=== PATIENT | female | born 1930 | race Asian ===

== ENCOUNTER 2017-02-05 17:01 | Inpatient (IN) | payer MEDICARE, MEDICAID ==
--- NOTE | 2017-02-05 17:15 | ED Physician Chart ---
ED Chief Complaint/HPI - Patient Information Date Seen:: 02/05/17 Time Seen:: 17:00 Chief Complaint:: altered level of consciousness History of Present Illness:: Patient said decreased level of consciousness for last 3 days. She's also had a fever and a productive cough. 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; right sided facial twitch) Family History: None Social History: Non Smoker, No Alcohol, Care Facility Surgical History: other (bilateral above-knee amputations) Psychiatricy History: None Medication: Reviewed Family Medical History - Family Member Mother Ethnicity: Non- Living Status: Still Living ED Physical Exam - Physical Examination Other Gen/Cons comments:: Chronically ill-appearing Head: Atraumatic Eyes: Lids, conjuctiva normal Skin: Nl inspection, No rash ENMT: External ears, nose nl Other ENMT comments:: Edentulous Neck: No nuchal rigidity Respiratory: Nl effort/Exclusion, Clear to Auscultation, No Wheeze/Rhonchi/Rales Cardio Vascular: RRR GI: No tenderness/rebounding/guarding, No organomegaly, No hernia, Normal BS's : No CVA tenderness Other Extremities comments:: Bilateral above-knee amputations Neuro/Psych: No focal deficits ED Labs/Radiology/EKG Results - Lab Results Results: Laboratory Results - last 24 hr 02/05/17 02/05/17 02/05/17 17:20 17:20 17:45 WBC 9.8 RBC 4.46 Hgb 13.2 Hct 40.2 L MCV 90.2 MCH 29.7 MCHC Differential 32.9 RDW 14.5 Plt Count 232 MPV 7.2 Neutrophils % 84.9 H Lymphocytes % 10.8 L Monocytes % 2.0 Eosinophils % 0.1 Basophils % 2.2 H Sodium 139 Potassium 3.8 Chloride 109 H Carbon Dioxide 26.8 Anion Gap 7.0 BUN 28 H Creatinine 1.0 Est GFR ( Amer) TNP Est GFR (Non-Af Amer) TNP BUN/Creatinine Ratio 28.0 Glucose 160 H Calcium 9.2 Urine Color YELLOW Urine Clarity CLOUDY H Urine pH 7.0 Ur Specific [place] 1.010 Urine Protein TRACE Urine Glucose (UA) NEGATIVE Urine Ketones NEGATIVE Urine Blood LARGE H Urine Nitrate NEGATIVE Urine Bilirubin NEGATIVE Urine Urobilinogen 0.2 Ur Leukocyte Esterase LARGE H ED Septic Shock - . Is Septic Shock (SBP<90, OR Lactate>4 mmol\L) present?: No ED Reassessment (Disposition) - Reassessment Reassessment Condition:: Unchanged - Diagnosis Diagnosis:: Acute febrile illness; pyelonephritis; status post bilateral above-knee amputations; vascular disease - Patient Disposition Admitted to:: Med/Surg Spoke to:: Ronal Howell Admitting Medical Physician:: Ronal Howell Condition at Disposition:: Stable, Unchanged
[2017-02-05 17:31] LABS: % BASOPHILS 2.2 % (0.0-2.0); % EOSINOPHILS 0.1 % (0.0-5.0); % LYMPHOCYTES 10.8 % (20.0-50.0); % NEUTROPHILS 84.9 % (40.0-80.0); HEMATOCRIT 40.2 % (41.0-60); HEMOGLOBIN 13.2 gm/dL (12-16); MEAN CELL VOLUME 90.2 fl (81-100); MEAN CORPUSCULAR HEMOGLOBIN 29.7 pg (27.0-31.0); MEAN CORPUSCULAR HGB CONC 32.9 pg (28.0-36.0); MEAN PLATELET VOLUME 7.2 fl; NEUTROPHILE ABSOLUTE 8.3 Th/cmm (1.8-8.0); PLATELET COUNT 232 Th/cmm (150-400); RED BLOOD COUNT 4.46 Mil/cmm (3.80-5.20); RED CELL DISTRIBUTION WIDTH 14.5 % (11.5-20.0); WHITE BLOOD COUNT 9.8 Th/cmm (4.8-10.8)
[2017-02-05 17:48] LABS: BUN - UREA NITROGEN 28 mg/dL (7-25); CALCIUM SERUM 9.2 mg/dL (8.6-10.3); CARBON DIOXIDE 26.8 mEq/L (21.0-31.0); CHLORIDE 109 mEq/L (98-107); GLUCOSE 160 mg/dL (70-105); POTASSIUM SERUM 3.8 mEq/L (3.5-5.1); SODIUM SERUM 139 mEq/L (136-145)
[2017-02-05 18:30] LABS: URINE BILIRUBIN NEGATIVE (NEGATIVE); URINE BLOOD LARGE (NEGATIVE); URINE GLUCOSE (UA) NEGATIVE (NEGATIVE); URINE KETONE NEGATIVE (NEGATIVE); URINE PROTEIN TRACE mg/dL (NEGATIVE); URINE UROBILINOGEN 0.2 E.U./dL (0.2 - 1.0)
[2017-02-05 18:51] LABS: URINE COLOR YELLOW
[2017-02-05 19:04] LABS: URINE BACTERIA FEW /hpf (NONE SEEN); URINE EPITHELIAL CELLS NONE SEEN /lpf (FEW); URINE RBC >100 /hpf (0-5); URINE WBC 50-100 /hpf (0-5)
[2017-02-05] MEDS ORDERED: Sodium Chloride 0.9% 1,000 ML IV ONE (19:05)
[2017-02-05] MEDS ORDERED: cefTRIAXone 1 GM in Sodium Chloride 0.9% 50 ML IV ONE (19:07)
[2017-02-05] MEDS: D5-0.45NS 1,000 ML IV SCH (21:06)
--- NOTE | 2017-02-06 07:05 | Diagnostic Imaging Report ---
Portable chest x-ray Time: 1740 hours History: Fever Allowing for portable technique the heart size is normal. No focal pulmonary parenchymal processes. No hilar or mediastinal abnormalities. Bony thorax remarkable for degenerative osteopenia. There is no evidence of pleural effusions. Impression: No acute abnormalities.
[2017-02-06] MEDS ORDERED: Magnesium Hydroxide (MOM) 30 mL UDC PO PRN (08:58)
[2017-02-06] MEDS ORDERED: Fleet Enema 135 mL RC PRN (08:58)
[2017-02-06] MEDS ORDERED: Polyvinyl Alcohol Ophth Soln 15 mL Bottle EACH EYE PRN (10:00)
--- NOTE | 2017-02-06 10:24 | History & Physical ---
ADMIT DATE: 02/05/2017 PATIENT IDENTIFYING DATA: An 86-year-old female. CHIEF COMPLAINT: Sent to Emergency Room for high-grade fever and increasing lethargy. HISTORY SOURCE: Talking to staff at [facility] as well as reviewing the chart. 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 Noted by nursing staff that the patient was having a high-grade fever with increasing lethargy. The patient was sent to Emergency Room where the patient was evaluated by Emergency Room MD. Workup did reveal the patient had urinary tract infection along with elevated blood sugar. The patient due to her advanced age and complicated UTI, the patient is advised to be admitted. The patient has now been admitted to Med/Surg floor. PAST MEDICAL HISTORY: Remarkable for: 1. Peripheral vascular disease. 2. Bilateral above-knee amputation. 3. Gastritis. 4. Rheumatoid arthritis. 5. Hyperlipidemia. 6. Glaucoma. 7. DJD. 8. Dementia. MEDICATIONS AT HOME: Taking Tylenol, amlodipine, aspirin, bisacodyl, calcium with vitamin D, Artificial Tear, Colace, famotidine, Fleet enema, folic acid, magnesium hydroxide, ____, prednisone, simvastatin and Travatan eyedrops. ALLERGIES: The patient is not allergic to medication. SOCIAL HISTORY: The patient resides in a [facility]. No smoking cigarette, alcohol or drug use. FAMILY MEDICAL HISTORY: Remarkable for hypertension. REVIEW OF SYSTEMS: The patient is currently alert, awake. Denies any chest pain, shortness of breath. Does have fever, intermittent. Does have chills. Denies any headache. Denies any dysphagia. Denies any seizure. Denies any syncopal episode. The patient has a poor appetite. The patient denies any upset stomach. Denies any hematemesis, hematuria, hematochezia or melena. PHYSICAL EXAMINATION: GENERAL: The patient is an 86-year-old ill-appearing female lying in the bed without any acute distress. VITAL SIGNS: T-max is 102.4, pulse is 75, respiratory rate is 20, blood pressure 130/70. SKIN: Warm to touch. Adequate skin turgor. No petechiae. No purpura. HEENT: Normocephalic, atraumatic. Extraocular muscles are intact. 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 Tongue was pink and dry. Legal blindness also noted. NECK: Supple. No JVD. No hepatojugular reflex. No lymphadenopathy, thyromegaly or carotid bruit. HEART: Both heart sounds are regular. No S3. No S4. CHEST: Lung equal in expansion with decreased breath sounds in both bases. ABDOMEN: Soft. No guarding. No rigidity. Bowel sounds are present. No palpable mass. EXTREMITIES: Bilateral above-knee amputation noted with intact stump. NEUROLOGIC: Alert, awake and follows commands. AVAILABLE DIAGNOSTIC DATA: The patient's white count of 9.8, hemoglobin 13.2, platelet count of 232. Sodium 139, potassium 3.9, chloride 109, CO2 is 26.8, BUN is 78, creatinine is 1, glucose 160. Urine remarkable for urinary tract infection. IMPRESSION: 1. Complicated urinary tract infection. 2. High-grade fever secondary to urinary tract infection. 3. Immunocompromised. 4. Glaucoma. 5. Hypertension. 6. Peripheral vascular disease. 7. Status post bilateral above-knee amputation. 8. High risk for fall. 9. DJD. 10. Rheumatoid arthritis. PLAN: 1. Admit this patient to Med/Surg floor. 2. IV antibiotic. 3. Blood cultures. 4. Appropriate home medicine reconciliation. 5. General nursing care. 6. Nutritional support. 7. Follow lab. 8. Infectious Disease consultation. 9. Follow consult recommendation. 10. Care plan reviewed and discussed with staff. JOB# [id number]
[2017-02-06] MEDS: Multivitamin w/ Minerals Tab PO SCH (10:36)
[2017-02-06] MEDS: Calcium Carb/Vit D 500 mg/200 U Tab PO SCH ×2 (10:36→16:36)
[2017-02-06] MEDS: Aspirin 81mg Chewable Tab PO SCH (10:38)
[2017-02-06] MEDS: D5-0.45NS 1,000 ML IV SCH ×2 (10:49→23:26)
--- NOTE | 2017-02-06 11:48 | Consultation ---
Consult Note - Consult Note Service Date: 02/06/17 Referring Physician: John Mishra Consult Note: PHYSICIAN Consultation Note: Date of Admission: 02/05/17 Purpose of Consultation: Sepsis UTI. Chief Complaint: Patient FRANCK PLASCENCIA was admitted to location Medical/Surgical Unit I with PYELONEPHRITIS. History of Present Illness: 80-year-old female with a past medical history of dementia, rheumatoid arthritis , hyperlipidemia, glaucoma, DJD, bilateral [id number] amputations brought in from nursing facility for high fevers. On initial evaluation, her temperature was 102.7F and WBC count was 9800. Sepsis workup showed UTI., Urinalysis showed pyuria and bacteriuria. She was put on Rocephin and gentamicin. ID consult was called for antibiotic management. Past Medical History: dementia, rheumatoid arthritis, hyperlipidemia, glaucoma , DJD, bilateral [id number] amputations . Allergies Allergy/AdvReac Type Severity Reaction Status Date / Time No Known Allergies Allergy Verified 02/05/17 17:10 Vital Signs Temp 97.1 F 02/06/17 11:32 Pulse 99 02/06/17 11:32 Resp 16 02/06/17 11:32 BP 160/84 02/06/17 11:32 Pulse Ox 96 02/06/17 11:32 Intake & Output 02/05/17 02/06/17 02/06/17 18:59 06:59 18:59 Intake Total 100 1000 Balance 100 1000 Weight (lbs) 36.469 kg Intake: Intake, IV Amount 1000 D5-0.45NS 1,000 ml @ 75 1000 mls/hr IV .[id number] [facility] Rx #:[id number] Oral 100 Other: # Voids 2 # Bowel Movements 0 Home Medication Medication Instructions Recorded Type Acetaminophen [8 Hour] 650 mg PO Q6H PRN 02/05/17 History Acetaminophen [Tylenol] 650 mg PO Q4HR PRN 02/05/17 History Amino Acids/Protein Hydrolys 30 ml PO BID 02/05/17 History [Pro-Stat Sugar Free 887 ml] Aspirin [Aspirin Chewable] 81 mg PO DAILY 02/05/17 History Bisacodyl [Dulcolax 10 Mg Supp] 10 mg RC DAILY PRN 02/05/17 History Calcium Carbonate/Vitamin D3 1 each PO BID 02/05/17 History [Calcium 500 + Vit D Caplet] Dextran 70/Hypromellose 1.4 % OP QID 02/05/17 History [Artificial Tears] Docusate Sodium [Colace] 100 mg PO BID 02/05/17 History Famotidine [Pepcid] 20 mg PO BID 02/05/17 History Fleet Enema [Fleet Enema] 135 ml RC Q72H PRN 02/05/17 History Folic Acid [Folate*] 1 mg PO DAILY 02/05/17 History Magnesium Hydroxide [Milk of 30 ml PO DAILY PRN 02/05/17 History Magnesia] Multivitamin w/ Minerals 1 tab PO DAILY 02/05/17 History [Theragran M] Prednisone 2.5 mg PO DAILY 02/05/17 History Simvastatin [Zocor] 10 mg PO HS 02/05/17 History Travoprost [Travatan Z 2.5 ml] 0.004 % OP HS 02/05/17 History amLODIPine Besylate [Norvasc] 5 mg PO BID 02/05/17 History Current Medications Generic Name Dose Route Start Last Admin Trade Name Fre PRN Reason Stop Dose Admin Acetaminophen 650 mg 02/06/17 08:58 Tylenol PO Q6H PRN Pain Amlodipine Besylate 5 mg 02/06/17 09:00 02/06/17 10:37 Norvasc PO 04/07/17 08:59 5 mg BID CATHERINE Administration Artificial Tears 1 drop 02/06/17 10:00 Artificial Tears Ophth Soln EACH EYE 04/07/17 09:59 QID PRN DRY EYES Aspirin 81 mg 02/06/17 09:00 02/06/17 10:38 Aspirin Chewable PO 04/07/17 08:59 81 mg DAILY CATHERINE Administration Bisacodyl 10 mg 02/06/17 08:58 Dulcolax 10 Mg Supp RC 04/07/17 08:57 DAILY PRN IF MOM INEFFECTIVE FOR BM Calcium/Vitamin D 1 tab 02/06/17 09:00 02/06/17 10:36 Oscal W/Vitamin D PO 04/07/17 08:59 1 tab BID CATHERINE Administration Docusate Sodium 100 mg 02/06/17 09:00 02/06/17 10:37 Colace PO 04/07/17 08:59 100 mg BID CATHERINE Administration Famotidine 20 mg 02/06/17 09:00 02/06/17 10:37 Pepcid PO 04/07/17 08:59 20 mg BID CATHERINE Administration Folic Acid 1 mg 02/06/17 09:00 02/06/17 10:36 Folate PO 04/07/17 08:59 1 mg DAILY CATHERINE Administration Dextrose/Sodium Chloride 1,000 mls @ 75 mls/hr 02/05/17 19:45 02/06/17 10:49 D5-0.45ns IV 04/06/17 19:44 75 mls/hr .[id number] CATHERINE Administration Ceftriaxone Sodium 1 gm/ 50 mls @ 100 mls/hr 02/06/17 20:00 Dextrose IV 04/07/17 19:59 Q24H CATHERINE Gentamicin Sulfate 60 mg/ 101.5 mls @ 100 mls/hr 02/06/17 10:00 02/06/17 11: 14 Sodium Chloride IV 04/07/17 09:59 100 mls/hr Q24HR@0900 CATHERINE Administration Magnesium Hydroxide 30 ml 02/06/17 08:58 Milk Of Magnesia PO 04/07/17 08:57 DAILY PRN IF NO BM FOR TWO DAYS Miscellaneous 0.004 % 02/06/17 21:00 Travoprost [Travatan] OP 04/07/17 20:59 HS CATHERINE Miscellaneous 1 ea 02/06/17 09:15 Gentamicin Iv Per Pharmacy [facility] 04/07/17 09:14 PRN CATHERINE Prednisone 2.5 mg 02/06/17 09:00 02/06/17 10:38 Deltasone PO 04/07/17 08:59 2.5 mg DAILY CATHERINE Administration Simvastatin 10 mg 02/06/17 21:00 Zocor PO 04/07/17 20:59 HS [facility] Protocol Sodium Phosphate 135 ml 02/06/17 08:58 Fleet Enema RC 04/07/17 08:57 Q72H PRN IF DULCOLAX INEFFECTIVE FOR BM Review of Systems: A 12 point ROS was reviewed with the pertinent positive and negatives noted in the HPI. Social History Smoking Status Never smoker Family Medical History Unknown. Temperature was Physical Exam: General: Lean and thin female without any acute distress. Nontoxic. HEENT: Head: Normocephalic, atraumatic. Oral cavity: Moist, pink tongue. Eyes : No pallor. No icterus. Face: Symmetrical. Neck: Supple, no JVD, no use of X his neck muscles. Cardio: S1 and S2 within normal limits regular rhythm no murmur or gallop. Respiratory: Vesicular breath sounds, no crackles, no wheezing. Abdominal: Soft, nontender, nondistended, bowel sounds present. Back: No CVA tenderness. No spinal tenderness. Genital/Urinary: Deferred. Extremities: Bilateral BKA. Neurological: Confused. Assessment: 1. Fever and tachycardia, possible sepsis. 2. UTI, pyelonephritis. Complicated. 3. Dementia. 4. Peripheral vascular disease. 5 bilateral and bony amputation. 6 rheumatoid arthritis. 7. Hyperlipidemia. 8. Glaucoma. 9. DJD. 10. Gastritis. Plan: Will continue rocephin and gentamicin. Follow up the cs report and decide further therapy. Renal US. Signed, Vijay Johnson M.D. [id number]
[2017-02-07 05:51] LABS: % BASOPHILS 0.6 % (0.0-2.0); % EOSINOPHILS 2.4 % (0.0-5.0); % LYMPHOCYTES 15.3 % (20.0-50.0); % MONOCYTES 5.6 % (2.0-10.0); % NEUTROPHILS 76.1 % (40.0-80.0); HEMOGLOBIN 11.6 gm/dL (12-16); MEAN CORPUSCULAR HEMOGLOBIN 34.3 pg (27.0-31.0); MEAN CORPUSCULAR HGB CONC 35.7 pg (28.0-36.0); MEAN PLATELET VOLUME 7.3 fl; NEUTROPHILE ABSOLUTE 6.2 Th/cmm (1.8-8.0); RED CELL DISTRIBUTION WIDTH 13.5 % (11.5-20.0); WHITE BLOOD COUNT 8.2 Th/cmm (4.8-10.8)
[2017-02-07 05:56] LABS: HEMATOCRIT 32.6 % (41.0-60); PLATELET COUNT 177 Th/cmm (150-400)
[2017-02-07 06:01] LABS: ALB/GLOB RATIO 0.7 (1.0-1.8); ALKALINE PHOSPHATASE 43 U/L (34-104); ANION GAP 7.5 (7.0-16.0); BILIRUBIN,TOTAL 0.3 mg/dL (0.3-1.0); BUN - UREA NITROGEN 9 mg/dL (7-25); BUN/CREATININE RATIO 22.5; CALCIUM SERUM 7.4 mg/dL (8.6-10.3); CARBON DIOXIDE 25.4 mEq/L (21.0-31.0); CHLORIDE 102 mEq/L (98-107); CREATININE - SERUM 0.4 mg/dL (0.6-1.2); GLUCOSE 107 mg/dL (70-105); SGOT 23 U/L (13-39); SGPT/ALT 22 U/L (7-52); SODIUM SERUM 132 mEq/L (136-145)
[2017-02-07 06:35] LABS: POTASSIUM SERUM 2.9 mEq/L (3.5-5.1)
[2017-02-07] MEDS ORDERED: KCL 20mEq/100mL Premix 20 MEQ/100 ML PIGGYBACK IV ONE (06:46)
[2017-02-07] MEDS: Multivitamin w/ Minerals Tab PO SCH (08:30)
[2017-02-07] MEDS: Potassium Chloride 20 mEq ER Tab PO SCH (08:30)
[2017-02-07] MEDS: Calcium Carb/Vit D 500 mg/200 U Tab PO SCH ×2 (08:31→16:15)
[2017-02-07] MEDS: Aspirin 81mg Chewable Tab PO SCH (08:31)
--- NOTE | 2017-02-07 09:44 | Diagnostic Imaging Report ---
Renal ultrasound HISTORY: Pain, pyelonephritis The right kidney is decreased in size (7.3 x 3.5 x 4.2 cm). No focal lesions. No hydronephrosis. The left kidney is also decreased in size (8.1 x 4.2 x 3.7 cm. This suboptimal delineation of the renal margins. There is suggestion of an approximate 1.5 cm sonolucent lesion in the lateral cortex probably related to a cyst. A 5 mm echogenic density is also noted in the cortical medullary junction region that may represent a calculus. No hydronephrosis. No intraluminal abnormality seen within the urinary bladder. IMPRESSION: 1. Decreased renal size is bilateral 2. No hydronephrosis 3. Apparent sonolucent lesion in the lateral cortex of the left kidney that may represent a cyst. 4. 5 mm echogenic density in the cortical medullary junction region that may be associated with a calculus. Again, no hydronephrosis. If necessary, a CT scan would provide additional detail.
[2017-02-08] MEDS: D5-0.45NS 1,000 ML IV SCH (01:37)
[2017-02-08] MEDS: Calcium Carb/Vit D 500 mg/200 U Tab PO SCH ×2 (08:55→16:33)
[2017-02-08] MEDS: Potassium Chloride 20 mEq ER Tab PO SCH (08:55)
[2017-02-08] MEDS: Multivitamin w/ Minerals Tab PO SCH (08:55)
[2017-02-08] MEDS: Aspirin 81mg Chewable Tab PO SCH (08:55)
[2017-02-08] MEDS ORDERED: Probiotic Screen MC PRN (14:39)
--- NOTE | 2017-02-08 16:07 | Infectious Disease Prog Note ---
Infectious Disease Subjective - Review of Systems Service Date: 02/08/17 Subjective: Doinig well, no fever. Infectious Disease Objective - Results Result Diagrams: 02/07/17 05:05 02/07/17 05:05 Recent Labs: Laboratory Last Values WBC 8.2 Th/cmm (4.8-10.8) 02/07/17 05:05 RBC 3.40 Mil/cmm (3.80-5.20) L 02/07/17 05:05 Hgb 11.6 gm/dL (12-16) L 02/07/17 05:05 Hct 32.6 % (41.0-60) L D 02/07/17 05:05 MCV 96.0 fl (81-100) 02/07/17 05:05 MCH 34.3 pg (27.0-31.0) H 02/07/17 05:05 MCHC Differential 35.7 pg (28.0-36.0) 02/07/17 05:05 RDW 13.5 % (11.5-20.0) 02/07/17 05:05 Plt Count 177 Th/cmm (150-400) D 02/07/17 05:05 MPV 7.3 fl 02/07/17 05:05 Neutrophils % 76.1 % (40.0-80.0) 02/07/17 05:05 Lymphocytes % 15.3 % (20.0-50.0) L 02/07/17 05:05 Monocytes % 5.6 % (2.0-10.0) 02/07/17 05:05 Eosinophils % 2.4 % (0.0-5.0) 02/07/17 05:05 Basophils % 0.6 % (0.0-2.0) 02/07/17 05:05 Sodium 132 mEq/L (136-145) L 02/07/17 05:05 Potassium 2.9 mEq/L (3.5-5.1) L* 02/07/17 05:05 Chloride 102 mEq/L (98-107) 02/07/17 05:05 Carbon Dioxide 25.4 mEq/L (21.0-31.0) 02/07/17 05:05 Anion Gap 7.5 (7.0-16.0) 02/07/17 05:05 BUN 9 mg/dL (7-25) 02/07/17 05:05 Creatinine 0.4 mg/dL (0.6-1.2) L 02/07/17 05:05 Est GFR ( Amer) TNP 02/07/17 05:05 Est GFR (Non-Af Amer) TNP 02/07/17 05:05 BUN/Creatinine Ratio 22.5 02/07/17 05:05 Glucose 107 mg/dL (70-105) H 02/07/17 05:05 Calcium 7.4 mg/dL (8.6-10.3) L 02/07/17 05:05 Total Bilirubin 0.3 mg/dL (0.3-1.0) 02/07/17 05:05 AST 23 U/L (13-39) 02/07/17 05:05 ALT 22 U/L (7-52) 02/07/17 05:05 Alkaline Phosphatase 43 U/L (34-104) 02/07/17 05:05 Total Protein 6.1 gm/dL (6.0-8.3) 02/07/17 05:05 Albumin 2.4 gm/dL (3.7-5.3) L 02/07/17 05:05 Globulin 3.7 gm/dL 02/07/17 05:05 Albumin/Globulin Ratio 0.7 (1.0-1.8) L 02/07/17 05:05 Urine Source [place] 02/05/17 17:45 Urine Color YELLOW 02/05/17 17:45 Urine Clarity CLOUDY (CLEAR) H 02/05/17 17:45 Urine pH 7.0 (4.6 - 8.0) 02/05/17 17:45 Ur Specific [employer] 1.010 (1.005-1.030) 02/05/17 17:45 Urine Protein TRACE mg/dL (NEGATIVE) 02/05/17 17:45 Urine Glucose (UA) NEGATIVE mg/dL (NEGATIVE) 02/05/17 17:45 Urine Ketones NEGATIVE mg/dL (NEGATIVE) 02/05/17 17:45 Urine Blood LARGE (NEGATIVE) H 02/05/17 17:45 Urine Nitrate NEGATIVE (NEGATIVE) 02/05/17 17:45 Urine Bilirubin NEGATIVE (NEGATIVE) 02/05/17 17:45 Urine Urobilinogen 0.2 E.U./dL (0.2 - 1.0) 02/05/17 17:45 Ur Leukocyte Esterase LARGE (NEGATIVE) H 02/05/17 17:45 Urine RBC >100 /hpf (0-5) H 02/05/17 17:45 Urine WBC 50-100 /hpf (0-5) H 02/05/17 17:45 Ur Epithelial Cells NONE SEEN /lpf (FEW) 02/05/17 17:45 Urine Bacteria FEW /hpf (NONE SEEN) 02/05/17 17:45 Gentamicin Peak 4.5 ug/ml (4.0-8.0) L 02/08/17 09:50 Gentamicin Trough 0.2 ug/ml (0.2-2.0) L 02/08/17 08:30 - Physical Exam Vitals and I&O: Vital Signs Temp 96.8 F 02/08/17 12:00 Pulse 88 02/08/17 12:00 Resp 18 02/08/17 12:00 BP 130/72 02/08/17 12:00 Pulse Ox 100 02/08/17 12:00 Intake & Output 02/07/17 02/08/17 02/08/17 18:59 06:59 18:59 Intake Total 1101.5 50 Output Total 4 Balance 1101.5 46 Weight (lbs) 35.834 kg 34.927 kg Intake: Intake, IV Amount 1101.5 D5-0.45NS 1,000 ml @ 75 1000 mls/hr IV .[id number] [facility] Rx #:[id number] Gentamicin 60 mg In 101.5 Sodium Chloride 0.9% 100 ml @ 100 mls/hr IV Q24HR@ 0900 [facility] Rx#:[id number] Oral 50 Output: Urine/Stool Mix 4 Other: # Voids 1 3 # Bowel Movements 1 1 Active Medications: Current Medications Acetaminophen (Tylenol) 650 mg PO Q6H PRN PRN Reason: Pain Amlodipine Besylate (Norvasc) 5 mg PO BID [facility] Stop: 04/07/17 08:59 Last Admin: 02/08/17 08:55 Dose: 5 mg Artificial Tears (Artificial Tears Ophth Soln) 1 drop EACH EYE QID PRN PRN Reason: DRY EYES Stop: 04/07/17 09:59 Aspirin (Aspirin Chewable) 81 mg PO DAILY [facility] Stop: 04/07/17 08:59 Last Admin: 02/08/17 08:55 Dose: 81 mg Bisacodyl (Dulcolax 10 Mg Supp) 10 mg RC DAILY PRN PRN Reason: IF MOM INEFFECTIVE FOR BM Stop: 04/07/17 08:57 Calcium/Vitamin D (Oscal W/Vitamin D) 1 tab PO BID CATHERINE Stop: 04/07/17 08:59 Last Admin: 02/08/17 08:55 Dose: 1 tab Docusate Sodium (Colace) 100 mg PO BID CATHERINE Stop: 04/07/17 08:59 Last Admin: 02/08/17 08:55 Dose: 100 mg Famotidine (Pepcid) 20 mg PO DAILY CATHERINE Stop: 04/08/17 08:59 Last Admin: 02/08/17 08:55 Dose: 20 mg Folic Acid (Folate) 1 mg PO DAILY CATHERINE Stop: 04/07/17 08:59 Last Admin: 02/08/17 08:55 Dose: 1 mg Dextrose/Sodium Chloride (D5-0.45ns) 1,000 mls @ 75 mls/hr IV .[id number] [facility] Stop: 04/06/17 19:44 Last Admin: 02/08/17 01:37 Dose: 75 mls/hr Ceftriaxone Sodium 1 gm/ (Dextrose) 50 mls @ 100 mls/hr IV Q24H CATHERINE Stop: 04/07/17 19:59 Last Admin: 02/07/17 21:36 Dose: 100 mls/hr Latanoprost (Xalatan 0.005% Ophth Soln) 1 drop EACH EYE HS [facility] Stop: 04/07/17 20:59 Last Admin: 02/07/17 21:37 Dose: 1 drop Magnesium Hydroxide (Milk Of Magnesia) 30 ml PO DAILY PRN PRN Reason: IF NO BM FOR TWO DAYS Stop: 04/07/17 08:57 Megestrol Acetate (Megace) 400 mg PO DAILY CATHERINE PRN Reason: Protocol Stop: 04/09/17 08:59 Last Admin: 02/08/17 08:54 Dose: 400 mg Miscellaneous (Gentamicin Iv Per Pharmacy) 1 ea [facility] PRN CATHERINE Stop: 04/07/17 09:14 Miscellaneous (Clinical Monitoring) 1 ea [facility] DAILY PRN PRN Reason: RENAL Stop: 04/07/17 17:33 Miscellaneous (Probiotic Screen) 1 ea [facility] PRN PRN PRN Reason: PROTOCOL Stop: 04/09/17 14:38 Potassium Chloride (Klor-Con) 40 meq PO DAILY CATHERINE Stop: 04/08/17 08:59 Last Admin: 02/08/17 08:55 Dose: 40 meq Prednisone (Deltasone) 2.5 mg PO DAILY C[facility]ERINE Stop: 04/07/17 08:59 Last Admin: 02/08/17 08:54 Dose: 2.5 mg Simvastatin (Zocor) 10 mg PO HS CATHERINE PRN Reason: Protocol Stop: 04/07/17 20:59 Last Admin: 02/07/17 21:37 Dose: 10 mg Sodium Phosphate (Fleet Enema) 135 ml RC Q72H PRN PRN Reason: IF DULCOLAX INEFFECTIVE FOR BM Stop: 04/07/17 08:57 General: no acute distress, well developed, well nourished HEENT: atraumatic, normocephalic Neck: supple, no thyromegaly Cardiovascular: S1S2, regular Lungs: clear to auscultation bilaterally, clear to percussion Abdomen: soft, no tender, no distended Extremities: other (B/L BKA.), no cyanosis, no clubbing, no edema Neurological: awake, alert Skin: intact Infectious Disease Assmt/Plan - Problem List Patient Problems: All Active Problems COUGH WITH CONGESTION AND FEVER (Acute) - Assessment Assessment: 1. Fever and tachycardia, possible sepsis. resolved. 2. UTI, pyelonephritis. Complicated. 3. Dementia. 4. Peripheral vascular disease. 5 bilateral and bony amputation. 6 rheumatoid arthritis. 7. Hyperlipidemia. 8. Glaucoma. 9. DJD. 10. Gastritis. - Plan Plan: Conitnue rocpehin, if needed may change rocephin to levaquin 250mg po daily for 5 more days. Nutritional Asmnt/Malnutr-PDOC - Dietary Evaluation Malnutrition Findings (Please click <Entered> for more info): Nutritional Asmnt/Malnutrition Start: 02/06/17 14: 22 Text: Status: Complete Freq: Document 02/06/17 14:23 CROW (Rec: 02/06/17 14:54 CROW [email or web address]) Nutritional Asmnt/Malnutrition Patient General Information Nutritional Screening High Risk Diagnosis pyelonephritis, acute febrile Pertinent Medical Hx/Surgical Hx a/p bilateral AKA Subjective Information pt seen resting in bed durint the time of vist, confused. Spoke to RN, pt tolerated mech soft ground diet, eat slowly, consumed 60% of breakfast this morning. Pt has no teeth noted. RN stated pureed diet may be more beneficial to pt. Performed physical exam, mild muscle wasting on arms noted. Adj BMI 19.4, Adj IBW 80lb, current wt is 100% of adj IBW Pertinent Medications Ca/Vit D, D5, Colace, Folate Pertinent Labs 02/05 Cl 109H, BUN 28H, Cr 1.0 , Glu 160H, no hx of DM noted Nutritional Hx/Data Height 1.52 m Height (Calculated Centimeters) 152.4 Current Weight (lbs) 36.287 kg Weight (Calculated Kilograms) 36.3 Weight (Calculated Grams) 42993.4 Body Mass Index (BMI) 15.6 Weight Status Approriate GI Symptoms GI Symptoms None Usual diet at home Fortified Mech Soft NIRAV diet at [facility] Skin Integrity/Comment: intact Estimated Nutritional Goals BEE in Kcals: Using Current wt Calories/Kcals/Kg 30-35 Kcals Calculated [id number] Protein: Using Current wt Protein g/k-1.2 Protein Calculated 37-44 Fluid: ml [id number] Nutritional Problem 1. Problem Problem chewing difficulty Etiology pt has no teeth Signs/Symptoms: need for mech soft ground diet Malnutrition Alert Protein-Calorie Malnutrition N/A Is there a minimum of two criteria No selected? Query Text:Check all the applicable criteria. A minimum of two criteria are recommended for diagnosis of either severe or non-severe malnutrition. Intervention/Recommendation Comments 1. Continue with current diet order since current PO intake 50% meets 100% of nutritional needs. 2. Monitor PO intake, tolerance, wt weekly, labs, skin integrity 3. F/U as moderate risk in 3-5 days, 02/09-02/11, PO intake check 02/09 Expected Outcomes/Goals Expected Outcomes/Goals 1. PO intake continue to >50% to meet nutritional needs with tolerance 2. wt stability, labs to improve, skin to remain intact
[2017-02-08 18:22] LABS: ANION GAP 5.8 (7.0-16.0); BUN - UREA NITROGEN 11 mg/dL (7-25); BUN/CREATININE RATIO 18.3; CALCIUM SERUM 8.3 mg/dL (8.6-10.3); CARBON DIOXIDE 27.2 mEq/L (21.0-31.0); CHLORIDE 105 mEq/L (98-107); CREATININE - SERUM 0.6 mg/dL (0.6-1.2); GLUCOSE 107 mg/dL (70-105); SODIUM SERUM 133 mEq/L (136-145)
[2017-02-09 05:58] LABS: % BASOPHILS 0.6 % (0.0-2.0); % EOSINOPHILS 2.7 % (0.0-5.0); % LYMPHOCYTES 26.3 % (20.0-50.0); % MONOCYTES 14.1 % (2.0-10.0); % NEUTROPHILS 56.3 % (40.0-80.0); HEMOGLOBIN 12.4 gm/dL (12-16); MEAN CELL VOLUME 94.4 fl (81-100); MEAN CORPUSCULAR HEMOGLOBIN 31.7 pg (27.0-31.0); MEAN CORPUSCULAR HGB CONC 33.6 pg (28.0-36.0); MEAN PLATELET VOLUME 7.2 fl; NEUTROPHILE ABSOLUTE 2.1 Th/cmm (1.8-8.0); PLATELET COUNT 192 Th/cmm (150-400); RED CELL DISTRIBUTION WIDTH 13.8 % (11.5-20.0)
[2017-02-09 06:10] LABS: HEMATOCRIT 36.8 % (41.0-60)
[2017-02-09 06:11] LABS: WHITE BLOOD COUNT 3.7 Th/cmm (4.8-10.8)
[2017-02-09 06:12] LABS: ALB/GLOB RATIO 0.7 (1.0-1.8); ALKALINE PHOSPHATASE 51 U/L (34-104); ANION GAP 6.6 (7.0-16.0); BILIRUBIN,TOTAL 0.3 mg/dL (0.3-1.0); BUN - UREA NITROGEN 10 mg/dL (7-25); CALCIUM SERUM 8.3 mg/dL (8.6-10.3); CARBON DIOXIDE 26.5 mEq/L (21.0-31.0); CHLORIDE 103 mEq/L (98-107); CREATININE - SERUM 0.5 mg/dL (0.6-1.2); POTASSIUM SERUM 4.1 mEq/L (3.5-5.1); SGOT 17 U/L (13-39); SGPT/ALT 18 U/L (7-52); SODIUM SERUM 132 mEq/L (136-145)
[2017-02-09] MEDS: D5-0.45NS 1,000 ML IV SCH (07:45)
[2017-02-09 08:12] LABS: GLUCOSE 95 mg/dL (70-105)
[2017-02-09] MEDS: Potassium Chloride 20 mEq ER Tab PO SCH (08:52)
[2017-02-09] MEDS: Aspirin 81mg Chewable Tab PO SCH (08:52)
[2017-02-09] MEDS: Calcium Carb/Vit D 500 mg/200 U Tab PO SCH (08:52)
[2017-02-09] MEDS: Multivitamin w/ Minerals Tab PO SCH (08:53)
--- NOTE | 2017-02-09 12:49 | Infectious Disease Prog Note ---
Infectious Disease Subjective - Review of Systems Service Date: 02/09/17 Subjective: Doinig well, no fever. Infectious Disease Objective - Results Result Diagrams: 02/09/17 05:07 02/09/17 05:07 Recent Labs: Laboratory Last Values WBC 3.7 Th/cmm (4.8-10.8) L D 02/09/17 05:07 RBC 3.90 Mil/cmm (3.80-5.20) 02/09/17 05:07 Hgb 12.4 gm/dL (12-16) 02/09/17 05:07 Hct 36.8 % (41.0-60) L D 02/09/17 05:07 MCV 94.4 fl (81-100) 02/09/17 05:07 MCH 31.7 pg (27.0-31.0) H 02/09/17 05:07 MCHC Differential 33.6 pg (28.0-36.0) 02/09/17 05:07 RDW 13.8 % (11.5-20.0) 02/09/17 05:07 Plt Count 192 Th/cmm (150-400) 02/09/17 05:07 MPV 7.2 fl 02/09/17 05:07 Neutrophils % 56.3 % (40.0-80.0) 02/09/17 05:07 Lymphocytes % 26.3 % (20.0-50.0) 02/09/17 05:07 Monocytes % 14.1 % (2.0-10.0) H 02/09/17 05:07 Eosinophils % 2.7 % (0.0-5.0) 02/09/17 05:07 Basophils % 0.6 % (0.0-2.0) 02/09/17 05:07 Sodium 132 mEq/L (136-145) L 02/09/17 05:07 Potassium 4.1 mEq/L (3.5-5.1) 02/09/17 05:07 Chloride 103 mEq/L (98-107) 02/09/17 05:07 Carbon Dioxide 26.5 mEq/L (21.0-31.0) 02/09/17 05:07 Anion Gap 6.6 (7.0-16.0) L 02/09/17 05:07 BUN 10 mg/dL (7-25) 02/09/17 05:07 Creatinine 0.5 mg/dL (0.6-1.2) L 02/09/17 05:07 Est GFR ( Amer) TNP 02/09/17 05:07 Est GFR (Non-Af Amer) TNP 02/09/17 05:07 BUN/Creatinine Ratio 20.0 02/09/17 05:07 Glucose 95 mg/dL (70-105) D 02/09/17 05:07 Calcium 8.3 mg/dL (8.6-10.3) L 02/09/17 05:07 Total Bilirubin 0.3 mg/dL (0.3-1.0) 02/09/17 05:07 AST 17 U/L (13-39) 02/09/17 05:07 ALT 18 U/L (7-52) 02/09/17 05:07 Alkaline Phosphatase 51 U/L (34-104) 02/09/17 05:07 Total Protein 6.2 gm/dL (6.0-8.3) 02/09/17 05:07 Albumin 2.5 gm/dL (3.7-5.3) L 02/09/17 05:07 Globulin 3.7 gm/dL 02/09/17 05:07 Albumin/Globulin Ratio 0.7 (1.0-1.8) L 02/09/17 05:07 Urine Source [place] 02/05/17 17:45 Urine Color YELLOW 02/05/17 17:45 Urine Clarity CLOUDY (CLEAR) H 02/05/17 17:45 Urine pH 7.0 (4.6 - 8.0) 02/05/17 17:45 Ur Specific [place] 1.010 (1.005-1.030) 02/05/17 17:45 Urine Protein TRACE mg/dL (NEGATIVE) 02/05/17 17:45 Urine Glucose (UA) NEGATIVE mg/dL (NEGATIVE) 02/05/17 17:45 Urine Ketones NEGATIVE mg/dL (NEGATIVE) 02/05/17 17:45 Urine Blood LARGE (NEGATIVE) H 02/05/17 17:45 Urine Nitrate NEGATIVE (NEGATIVE) 02/05/17 17:45 Urine Bilirubin NEGATIVE (NEGATIVE) 02/05/17 17:45 Urine Urobilinogen 0.2 E.U./dL (0.2 - 1.0) 02/05/17 17:45 Ur Leukocyte Esterase LARGE (NEGATIVE) H 02/05/17 17:45 Urine RBC >100 /hpf (0-5) H 02/05/17 17:45 Urine WBC 50-100 /hpf (0-5) H 02/05/17 17:45 Ur Epithelial Cells NONE SEEN /lpf (FEW) 02/05/17 17:45 Urine Bacteria FEW /hpf (NONE SEEN) 02/05/17 17:45 Gentamicin Peak 4.5 ug/ml (4.0-8.0) L 02/08/17 09:50 Gentamicin Trough 0.2 ug/ml (0.2-2.0) L 02/08/17 08:30 - Physical Exam Vitals and I&O: Vital Signs Temp 97.4 F 02/09/17 12:00 Pulse 85 02/09/17 12:00 Resp 18 02/09/17 12:00 BP 124/58 02/09/17 12:00 Pulse Ox 99 02/09/17 12:00 Intake & Output 02/08/17 02/09/17 02/09/17 18:59 06:59 18:59 Intake Total 1000 50 Balance 1000 50 Weight (lbs) 34.927 kg 35.834 kg Intake: Intake, IV Amount 1000 D5-0.45NS 1,000 ml @ 75 1000 mls/hr IV .[id number] [facility] Rx #:[id number] Oral 50 Other: # Voids 2 3 # Bowel Movements 0 0 Active Medications: Current Medications Acetaminophen (Tylenol) 650 mg PO Q6H PRN PRN Reason: Pain Amlodipine Besylate (Norvasc) 5 mg PO BID [facility] Stop: 04/07/17 08:59 Last Admin: 02/09/17 08:52 Dose: 5 mg Artificial Tears (Artificial Tears Ophth Soln) 1 drop EACH EYE QID PRN PRN Reason: DRY EYES Stop: 04/07/17 09:59 Aspirin (Aspirin Chewable) 81 mg PO DAILY [facility] Stop: 04/07/17 08:59 Last Admin: 02/09/17 08:52 Dose: 81 mg Bisacodyl (Dulcolax 10 Mg Supp) 10 mg RC DAILY PRN PRN Reason: IF MOM INEFFECTIVE FOR BM Stop: 04/07/17 08:57 Calcium/Vitamin D (Oscal W/Vitamin D) 1 tab PO BID [facility] Stop: 04/07/17 08:59 Last Admin: 02/09/17 08:52 Dose: 1 tab Docusate Sodium (Colace) 100 mg PO BID [facility] Stop: 04/07/17 08:59 Last Admin: 02/09/17 08:53 Dose: 100 mg Famotidine (Pepcid) 20 mg PO DAILY [facility] Stop: 04/08/17 08:59 Last Admin: 02/09/17 08:52 Dose: 20 mg Folic Acid (Folate) 1 mg PO DAILY [facility] Stop: 04/07/17 08:59 Last Admin: 02/09/17 08:52 Dose: 1 mg Latanoprost (Xalatan 0.005% [facility]) 1 drop EACH EYE HS [facility] Stop: 04/07/17 20:59 Last Admin: 02/08/17 21:54 Dose: 1 drop Magnesium Hydroxide (Milk Of Magnesia) 30 ml PO DAILY PRN PRN Reason: IF NO BM FOR TWO DAYS Stop: 04/07/17 08:57 Megestrol Acetate (Megace) 400 mg PO DAILY [facility] PRN Reason: Protocol Stop: 04/09/17 08:59 Last Admin: 02/09/17 08:53 Dose: 400 mg Miscellaneous (Clinical Monitoring) 1 ea MC DAILY PRN PRN Reason: RENAL Stop: 04/07/17 17:33 Miscellaneous (Probiotic Screen) 1 ea MC PRN PRN PRN Reason: PROTOCOL Stop: 04/09/17 14:38 Potassium Chloride (Klor-Con) 40 meq PO DAILY [facility] Stop: 04/08/17 08:59 Last Admin: 02/09/17 08:52 Dose: 40 meq Prednisone (Deltasone) 2.5 mg PO DAILY [facility] Stop: 04/07/17 08:59 Last Admin: 02/09/17 08:52 Dose: 2.5 mg Simvastatin (Zocor) 10 mg PO HS [facility] PRN Reason: Protocol Stop: 04/07/17 20:59 Last Admin: 02/08/17 21:54 Dose: 10 mg Sodium Phosphate (Fleet Enema) 135 ml RC Q72H PRN PRN Reason: IF DULCOLAX INEFFECTIVE FOR BM Stop: 04/07/17 08:57 General: no acute distress, cachectic HEENT: atraumatic, normocephalic, PERRLA, EOMI Neck: supple, no thyromegaly Cardiovascular: S1S2, regular Lungs: clear to auscultation bilaterally, clear to percussion Abdomen: soft, no tender, no distended, no mass Extremities: other (bka b/l) Neurological: awake Infectious Disease Assmt/Plan - Problem List Patient Problems: All Active Problems COUGH WITH CONGESTION AND FEVER (Acute) - Assessment Assessment: 1. Fever and tachycardia, possible sepsis. resolved. 2. UTI, pyelonephritis. Complicated. 3. Dementia. 4. Peripheral vascular disease. 5 bilateral and bony amputation. 6 rheumatoid arthritis. 7. Hyperlipidemia. 8. Glaucoma. 9. DJD. 10. Gastritis. - Plan Plan: Conitnue rocpehin, if needed may change rocephin to levaquin 250mg po daily for 4 more days. Nutritional Asmnt/Malnutr-PDOC - Dietary Evaluation Malnutrition Findings (Please click <Entered> for more info): Nutritional Asmnt/Malnutrition Start: 02/06/17 14: 22 Text: Status: Complete Freq: Document 02/06/17 14:23 LCHENG (Rec: 02/06/17 14:54 LCHENG [email or web address]) Nutritional Asmnt/Malnutrition Patient General Information Nutritional Screening High Risk Diagnosis pyelonephritis, acute febrile Pertinent Medical Hx/Surgical Hx a/p bilateral AKA Subjective Information pt seen resting in bed durint the time of vist, confused. Spoke to RN, pt tolerated [facility] soft ground diet, eat slowly, consumed 60% of breakfast this morning. Pt has no teeth noted. RN stated pureed diet may be more beneficial to pt. Performed physical exam, mild muscle wasting on arms noted. Adj BMI 19.4, Adj IBW 80lb, current wt is 100% of adj IBW Pertinent Medications Ca/Vit D, D5, Colace, Folate Pertinent Labs 02/05 Cl 109H, BUN 28H, Cr 1.0 , Glu 160H, no hx of DM noted Nutritional Hx/Data Height 1.52 m Height (Calculated Centimeters) 152.4 Current Weight (lbs) 36.287 kg Weight (Calculated Kilograms) 36.3 Weight (Calculated Grams) 54530.4 Body Mass Index (BMI) 15.6 Weight Status Approriate GI Symptoms GI Symptoms None Usual diet at home Fortified Mech Soft NIRAV diet at [facility] Skin Integrity/Comment: intact Estimated Nutritional Goals BEE in Kcals: Using Current wt Calories/Kcals/Kg 30-35 Kcals Calculated 5784-4672 Protein: Using Current wt Protein g/k-1.2 Protein Calculated 37-44 Fluid: ml 2487-7395 Nutritional Problem 1. Problem Problem chewing difficulty Etiology pt has no teeth Signs/Symptoms: need for mech soft ground diet Malnutrition Alert Protein-Calorie Malnutrition N/A Is there a minimum of two criteria No selected? Query Text:Check all the applicable criteria. A minimum of two criteria are recommended for diagnosis of either severe or non-severe malnutrition. Intervention/Recommendation Comments 1. Continue with current diet order since current PO intake 50% meets 100% of nutritional needs. 2. Monitor PO intake, tolerance, wt weekly, labs, skin integrity 3. F/U as moderate risk in 3-5 days, 02/09-02/11, PO intake check 02/09 Expected Outcomes/Goals Expected Outcomes/Goals 1. PO intake continue to >50% to meet nutritional needs with tolerance 2. wt stability, labs to improve, skin to remain intact
--- NOTE | 2017-02-09 15:11 | Discharge Summary ---
DATE OF DISCHARGE: 02/09/2017 PRINCIPAL DIAGNOSES: 1. Escherichia coli complicated urinary tract infection and pyelonephritis. 2. High grade fever secondary to urinary tract infection. 3. Immunocompromised status. 4. Significant hypokalemia, status post replacement. 5. Hypertension. 6. Peripheral vascular disease. 7. Status post bilateral above-knee amputation. 8. Degenerative joint disease. 9. High risk for fall. 10. Rheumatoid arthritis. 11. Debility. 12. Decline in self-care and mobility. BRIEF STATEMENT FOR THE REASON FOR ADMISSION: An 86-year-old resident of [facility] sent to Emergency Room for evaluation of high-grade fever with increasing lethargy. The patient was evaluated today and subsequently admitted to the hospital for further treatment. Please refer to my dictated medical H and P for further information. HOSPITAL COURSE: The patient was admitted to Med/Surg floor. IV antibiotic. Blood cultures were obtained. Infectious Disease consultation requested. Appropriate medication was reconciliated. General nursing care was provided. The patient was seen by Infectious Disease. Renal ultrasound was done, which was negative for any hydronephrosis. The patient was noted to have E. coli in her urine. Blood cultures were negative. MRSA came out positive and given contact isolation. The patient was improving with the treatment plan as ordered by myself and direct sales consultant. The patient was noted to have a significant amount of hypokalemia with potassium of 2.9, which was replaced. On 02/09/2017 at the time of discharge, her potassium is 4.1, BUN and creatinine is 10 and 0.5. Her albumin was reported low 2.4 and 2.5, suspected secondary to poor p.o. intake. The patient remained hemodynamically stable. Decision was made that the IV antibiotic can be switched to p.o., so the patient is discharged to [facility] with p.o. Levaquin to be continued for 7 days. At the time of discharge, all of her meds are reconciliated. The patient will be seen me at [place] in 1 week. JOB# [id number]
== END 2017-02-09 14:00 | disposition home or self-care (01) | DRG 871 ==
LOC: ER 17:01 → MSI 19:20
PROVIDERS: ADMIT Internal Medicine; ATTEND Internal Medicine
DX: A41.9 Sepsis, unspecified organism (principal); G93.40 Encephalopathy, unspecified; D89.9 Disorder involving the immune mechanism, unspecified; E11.51 Type 2 diabetes mellitus with diabetic peripheral angiopathy without gangrene; N12 Tubulo-interstitial nephritis, not specified as acute or chronic; G30.9 Alzheimer's disease, unspecified; F02.80 Dementia in other diseases classified elsewhere, unspecified severity, without behavioral disturbance, psychotic disturbance, mood disturbance, and anxiety; M06.9 Rheumatoid arthritis, unspecified; H40.9 Unspecified glaucoma; M19.90 Unspecified osteoarthritis, unspecified site; H54.8 Legal blindness, as defined in USA; G51.0 Bell's palsy; E78.5 Hyperlipidemia, unspecified; I10 Essential (primary) hypertension; K29.70 Gastritis, unspecified, without bleeding; E87.6 Hypokalemia; B96.20 Unspecified Escherichia coli [E. coli] as the cause of diseases classified elsewhere; Z89.612 Acquired absence of left leg above knee; Z79.82 Long term (current) use of aspirin; Z91.81 History of falling; Z82.49 Family history of ischemic heart disease and other diseases of the circulatory system; Z89.611 Acquired absence of right leg above knee
CPT/HCPCS: 36415-UA; 71010-TC; 76770-TC; 80048-TC; 80053-TC; 80170-TC; 81001-TC; 85025-TC; 87086-90; 94760; 96374; J0696; J1580; J3480; J7030; J7512; Z7610